=== PATIENT | male | born 1990 | race Caucasian/White ===

== ENCOUNTER 2020-05-30 15:52 | Outpatient (REF) | payer MEDICAID, SELFPAY | END 2020-05-30 15:53 | disposition home or self-care (01) | LOC: HO.LAB 15:52 | PROVIDERS: PCP Nurse Practitioner Family; Visit Provider Internal Medicine | DX: Z20.828 Contact with and (suspected) exposure to other viral communicable diseases (principal) | CPT/HCPCS: 87635 ==

== ENCOUNTER 2020-06-20 10:55 | Outpatient (REF) | payer MEDICAID, SELFPAY | END 2020-06-20 10:56 | disposition home or self-care (01) | LOC: HO.LAB 10:55 | PROVIDERS: Visit Provider Internal Medicine | DX: Z20.828 Contact with and (suspected) exposure to other viral communicable diseases (principal) | CPT/HCPCS: C9803; U0003 ==

== ENCOUNTER 2020-07-01 10:51 | Outpatient (REF) | payer MEDICAID, SELFPAY | END 2020-07-01 10:52 | disposition home or self-care (01) | LOC: HO.LAB 10:51 | PROVIDERS: Visit Provider Internal Medicine | DX: Z20.828 Contact with and (suspected) exposure to other viral communicable diseases (principal) | CPT/HCPCS: C9803; U0003 ==

== ENCOUNTER 2021-03-16 15:20 | Outpatient (REF) | payer MEDICAID, SELFPAY ==
--- NOTE | ~2021-03-16 | XR_ITS ---
EXAMINATION: XR LUMBOSACRAL SPINE CLINICAL INFORMATION: Abdominal pain. COMPARISON: CT abdomen and pelvis of 09/28/2018. TECHNIQUE: 3 views of the lumbosacral spine. FINDINGS: There are 5 [id number] lumbar vertebrae. The bony texture and alignment is satisfactory. Disc spaces are maintained. No acute fracture, spondylolisthesis, or spondylolysis appreciated. Pedicles intact. XR/XR lumbar spine 2-3V IMPRESSION: No significant abnormality of the lumbar spine identified.
== END 2021-03-16 15:21 | disposition home or self-care (01) ==
LOC: HO.XRAY 15:20
PROVIDERS: PCP Nurse Practitioner Family; Visit Provider Nurse Practitioner Family
DX: R10.9 Unspecified abdominal pain (principal)
CPT/HCPCS: 72100

== ENCOUNTER 2021-06-11 15:53 | Emergency (ER) | payer MEDICAID, SELFPAY ==
[2021-06-11 16:08] VITALS: BP 130/79; PULSE 82; RESP 18; TEMP 36.8; O2SAT 98; BMI 26.4
[2021-06-11 19:25] VITALS: BP 138/84; PULSE 78; RESP 18; TEMP 36.2; O2SAT 98
--- NOTE | 2021-06-11 19:43 | ED.BACK ---
HPI - Back Pain/Injury General Chief Complaint: Back Pain/Injury Stated Complaint: back pain and ?hives from pain meds Time Seen by Provider: 06/11/21 19:43 Source: patient Mode of arrival: ambulatory Limitations: no limitations History of Present Illness HPI Narrative: Patient with chronic back pain and x-ray done on 04/01 was negative , PCP started on tizanidine patient noticed is sleeping too much and medicine is not helping him had a small rash on the left side of the face which is getting better now. No history of trauma no urinary complaints no history of kidney stone pain is more localized to the right side. Patient able to ambulate with increased spasm Related Data Previous Rx's Medication Instructions Recorded oxycodone 5 mg tablet 5 mg PO Q6H PRN #20 tab 06/11/21 prednisone 20 mg tablet 40 mg PO DAILY #10 tab 06/11/21 Allergies Allergy/AdvReac Type Severity Reaction Status Date / Time dextromethorphan Allergy Mild RASH Unverified 04/28/20 17:09 [From Robitussin-DM] guaifenesin Allergy Mild RASH Unverified 04/28/20 17:09 [From Robitussin-DM] Review of Systems Review of Systems: Yes all other systems are reviewed and are negative [facility] Social History Social History Advance Directives: No Advance Directives Information Provided: No Physical Exam Vital Signs: Vital Signs: Last Vital Signs Temp 97.1 F 06/11/21 19:25 Pulse 78 06/11/21 19:25 Resp 18 06/11/21 19:25 BP 138/84 06/11/21 19:25 Pulse Ox 98 06/11/21 19:25 Body Mass Index 26.4 Const: General: healthy appearing and comfortable Orientation/consciousness: patient oriented x3 HENMT: Head: Yes normocephalic and Yes atraumatic Face and sinus: Yes normal facial exam Mouth: Normal oral and palatal mucosa present Eyes: General: appearance normal, both eyes and all related structures Neck: Neck: Yes normal visual inspection and Yes full ROM Resp: Effort & Inspection: normal respiratory effort Auscultation: clear to auscultation bilaterally Cardio: Palpation: normal PMI Rate: regular rate Rhythm: regular rhythm Heart sounds: S1 normal heart sound present and S2 normal heart sound present GI: Inspection: Yes normal to inspection Palpation (GI): Soft to palpation and nontender : General: Yes no CVA tenderness Back/Spine/Pelvis: Back: no CVA tenderness Thoracic/Lumbar Spine: straight leg raise negative bilaterally, thoraco-lumbar spasm, No thoracic spinal tenderness and No lumbar spinal tenderness Back/spine/pelvis image: 1. Soft tissue Tenderness, no spinal tenderness good range of movement neurovascular intact Neuro: General: patient oriented x3, gait normal, moves all extremities, Normal light touch and pain sensation and no focal motor deficits MDM - Back Pain/Injury Lab Data Labs: Lab Results 06/11/21 Range/Units 19:58 Urine Color YELLOW Urine Appearance CLEAR Urine pH 7.0 (5.0-8.0) Ur Specific [place] 1.015 (1.005-1.025) Urine Protein NEG (NEG-TRACE) MG/DL Urine Glucose (UA) NEG (NEG) MG/DL Urine Ketones NEG (NEG) MG/DL Urine Blood NEG (NEG) Urine Nitrite NEG (NEG) Ur Leukocyte Esterase NEG (NEG) Discharge Plan Discharge Clinical Impression: Strain of lumbar region Qualifiers: Encounter type: initial encounter Qualified Code(s): S39.012A - Strain of muscle, fascia and tendon of lower back, initial encounter Patient Disposition: Home, Self-Care Instructions: Back Pain (ED) Additional Instructions: Rest at home Take meds as prescribed and follow up with PCP Prescriptions: New prednisone 20 mg tablet 40 mg PO DAILY Qty: 10 RF: 0 oxycodone 5 mg tablet 5 mg PO Q6H PRN (Reason: Pain (Scale Score 7-10)) Qty: 20 RF: 0 Interventions: ED Discharge Assessment Last Done: 06/11/21 20:48 Discharge Date/Time: 06/11/21 20:48
[2021-06-11 20:04] LABS: Appearance Urine CLEAR; Color Urine YELLOW; Glucose Urine UA NEG (NEG); Leukocyte Esterase Urine NEG (NEG); Nitrite Urine NEG (NEG); Specific Gravity - Urine 1.015 (1.005-1.025); Urine Blood NEG (NEG); Urine Ketones NEG (NEG); Urine Protein NEG (NEG-TRACE)
[2021-06-11] MEDS: oxyCODONE HCl Immed Release 5 MG TABLET 10 MG PO (20:05)
[2021-06-11] MEDS: predniSONE 20 MG TABLET 40 MG PO (20:05)
== END 2021-06-11 20:48 | disposition home or self-care (01) ==
PROVIDERS: Emergency Provider Internal Medicine
DX: S39.012A Strain of muscle, fascia and tendon of lower back, initial encounter (principal); X58.XXXA Exposure to other specified factors, initial encounter; Y93.9 Activity, unspecified; Y92.9 Unspecified place or not applicable; Y99.9 Unspecified external cause status
CPT/HCPCS: 81003; 99283; 99284

== ENCOUNTER 2023-05-06 19:20 | Emergency (ER) | payer MEDICAID, SELFPAY ==
[2023-05-06 19:27] VITALS: PULSE 95; RESP 24; TEMP 37.1; O2SAT 96; BMI 26.6
--- NOTE | 2023-05-06 19:29 | ED.GENADULT ---
HPI - General Adult General Chief complaint: Anxiety Stated complaint: anxiety attack Time Seen by Provider: 05/06/23 19:43 Source: other (Significant other) Mode of arrival: ambulatory Limitations: other (Hyperventilating having a panic attack) History of Present Illness HPI narrative: Patient comes to the emergency room for a panic attack. Patient is unable to give any history because he is hyperventilating and crying. Patient's significant other at bedside, states that yesterday the patient was seen at [facility], given p.o. medications and discharged. Today, seems that patient slept all day, when he woke up, he started having a panic attack. Related Data Previous Rx's Medication Instructions Recorded oxycodone 5 mg tablet 5 mg PO Q6H PRN Pain (Scale Score 06/11/21 7-10) #20 tabs prednisone 20 mg tablet 40 mg (2 x 20 mg) PO DAILY #10 tabs 06/11/21 Allergies Allergy/AdvReac Type Severity Reaction Status Date / Time dextromethorphan Allergy Mild RASH Verified 05/06/23 19:33 [From Robitussin-DM] guaifenesin Allergy Mild RASH Verified 05/06/23 19:33 [From Robitussin-DM] Review of Systems Review of Systems: Yes Unobtainable due to mental condition [facility] Past Medical History Medical History (Updated 05/06/23 @ 20:21 by Majo Morfin MD) Panic attack Social History Social History Advance Directives: No Advance Directives Information Provided: No Physical Exam ED Vital Signs: Vital Signs - 24 hr 05/06/23 19:27 Temperature 98.7 F Pulse Rate 95 Respiratory Rate 24 H Pulse Oximetry 96 Oxygen Delivery Method Room Air BMI result Body Mass Index 26.6 Const Other: Appearance: Alert. Crying, hyperventilating, can speak, having a panic attack Eyes: Pupils equal, round and reactive to light. ENT: Pharynx normal. Neck: Normal inspection. Neck supple. No lymph nodes noted. No crepitus CVS: Heart rate 90-100,, regular rhythm, Pulses normal. Normal S1 and S2 Respiratory: No respiratory distress. Breath sounds normal. No Wheezing. No rales Abdomen: Soft and nontender. No rigidity. No distention. Skin: Skin warm and dry. Normal skin color. Normal skin turgor. Extremities: No lower extremity edema. No Lacerations. No Rash Neuro: Oriented X 3. No motor deficit. No sensory deficit. Moving all extremities. No slurred speech. CN 2 through 12 grossly intact Psych: Very anxious, having a panic attack, hyperventilating and sobbing/ crying Course Course Course Narrative: RME performed by Latanya Moore PA-C. Patient is a 32 year old assigned male at presenting to the emergency department with an anxiety attack. Patient placed back in the waiting room pending room availability and results. Medications Administered Discontinued Medications Generic Name Dose Route Start Last Admin Trade Name Freq PRN Reason Stop Dose Admin Diphenhydramine HCl 50 mg 05/06/23 19:55 05/06/23 20:06 Diphenhydramine Hcl 50 Mg/Ml Vial IM 05/06/23 19:56 50 mg ONCE ONE Administration Lorazepam 2 mg 05/06/23 19:55 05/06/23 20:06 Lorazepam 2 Mg/Ml Vial IM 05/06/23 19:56 2 mg STAT STA Administration Medical Decision Making Medical Decision Making [facility] Narrative: -I offered to the patient p.o. versus IM medications, Ativan, lorazepam, patient signaling that he wants IM medication. Per patient's request, we will give him IM Benadryl and lorazepam. This is not a chemical restraint -Ant from the care team at bedside, teaching the patient maneuvers and respirations to help with the anxiety. Within a few seconds, patient was able to calm down and breathe normal and stop crying -patient states that he has an appointment tomorrow with his new therapist -per Care Team, no need for inpatient psych, patient can be discharged when patient feels better -patient calm, no longer crying or hyperventilating. Patient will follow-up with his therapist tomorrow Differential Diagnosis Differential Diagnoses: The differential diagnosis associated with the presentation includes (Anxiety, panic attack) Critical Care Time Critical Care Time Critical Care Time: Yes Total Critical Care Time: 30 Attestation: I have personally provided critical care time. Time includes review of lab data, radiology results, discussion with consultants, and monitoring for potential decompensation. Intervention performed as documented. Discharge Plan Discharge Clinical Impression: Panic attack Patient Disposition: Home, Self-Care Instructions: Panic Attack (ED) Additional Instructions: Please follow-up with your primary care physician tomorrow. If you have any worsening or new symptoms, please return to the emergency room or call 911 Prescriptions: No Action prednisone 20 mg tablet 40 mg PO DAILY Qty: 10 0RF oxycodone 5 mg tablet 5 mg PO Q6H PRN (Reason: Pain (Scale Score 7-10)) Qty: 20 0RF
--- NOTE | 2023-05-06 20:00 | PC.NURSE ---
Pt into the room from [facility] with severe anxiety attack. Dr. Morfin and Care team at the bedside, pt offered IM Ativan and Benadryl to help him relax, pt agreeable to medication, family member present at the bedside
[2023-05-06] MEDS: LORazepam 2 MG/ML VIAL IM (20:06)
[2023-05-06] MEDS: diphenhydrAMINE HCL 50 MG/ML VIAL IM (20:06)
--- NOTE | 2023-05-06 20:12 | MHC.CARE ---
CARE Team was asked to see the pt by the ED provider due to him having an active panic attack. T/W called for a Yakut speaking sign language interpreter so that the communication would be easier as the pt does not speak [place] fluently. T/W used breathing techniques with the pt and it worked to calm the pt down. Pt began to have another panic attack once t/w asked about his triggers and t/w had the pt complete the breathing technique again. Again, it seemed to help. Pt was still requesting for his IM medications to help with his anxiety. ED RN walked into the room at this point and administered the IM anti-anxiety meds. Pt stated that he has a med provider and a therapist with [facility]. His next therapist appointment is tomorrow. Pt stated that he saw his med provider one week ago and no new changes took place. T/W encouraged the pt to utilize the breathing technique that he was just taught any time he feels anxious.
[2023-05-06 21:53] VITALS: BP 117/83; PULSE 76; RESP 16; O2SAT 98
== END 2023-05-06 21:54 | disposition home or self-care (01) ==
PROVIDERS: Emergency Provider Emergency Medicine
DX: F41.0 Panic disorder [episodic paroxysmal anxiety] (principal)
CPT/HCPCS: 96372; 99283; 99284; J1200; J2060

== ENCOUNTER 2023-05-19 15:53 | Emergency (ER) | payer MEDICAID, SELFPAY ==
[2023-05-19 16:00] VITALS: BP 116/79; PULSE 72; RESP 22; TEMP 36.6; O2SAT 98; BMI 25.9
--- NOTE | 2023-05-19 16:04 | ED.GENADULT ---
HPI - General Adult General Chief complaint: Anxiety Stated complaint: Anxiety Time Seen by Provider: 05/19/23 23:22 Source: patient Mode of arrival: ambulatory Limitations: no limitations History of Present Illness HPI narrative: Patient with history of anxiety disorder takes Atarax complaining of increased anxiety for last few days unable to sleep no recent stress denies any depression or SI no hallucination/ delusion Related Data Previous Rx's Medication Instructions Recorded oxycodone 5 mg tablet 5 mg PO Q6H PRN Pain (Scale Score 06/11/21 7-10) #20 tabs prednisone 20 mg tablet 40 mg (2 x 20 mg) PO DAILY #10 tabs 06/11/21 alprazolam 0.5 mg tablet (Xanax) 0.5 mg PO BID PRN anxiety/sleep 05/20/23 #10 tabs Allergies Allergy/AdvReac Type Severity Reaction Status Date / Time dextromethorphan Allergy Mild RASH Verified 05/06/23 19:33 [From Robitussin-DM] guaifenesin Allergy Mild RASH Verified 05/06/23 19:33 [From Robitussin-DM] Review of Systems Review of Systems: Yes all other systems are reviewed and are negative [facility] Past Medical History Medical History Panic attack Social History Social History Advance Directives: No Advance Directives Information Provided: No Physical Exam ED Vital Signs: Vital Signs - 24 hr 05/19/23 16:00 05/19/23 23:13 Temperature 97.8 F 98.2 F Pulse Rate 72 58 Respiratory Rate 22 H 16 Blood Pressure 116/79 131/80 Pulse Oximetry 98 98 Oxygen Delivery Method Room Air Room Air BMI result Body Mass Index 25.9 Appearance: Alert. Oriented X3. No acute distress. Eyes: PERRLA, No Nystagmus ENT: Pharynx normal. Oral Mucosa moist Neck: Normal inspection. Neck supple. CVS: Normal heart rate and rhythm. Pulses normal. Respiratory: No respiratory distress. Equal air entry bilateral, no wheezing/rales/rhonchi Abdomen: Soft and nontender. Bowel sounds are present, Skin: Skin warm and dry. Normal skin color. Normal skin turgor. Extremities: No lower extremity edema. No calf tenderness psych: Anxious, denies any SI or HI Neuro: Oriented X 3. No motor deficit. No sensory deficit.No cerebellar signs , cranial nerves II-XII intact Course Course Course Narrative: RME: patient present for severe anixeyt which usally presents with ABDOMINAL PAIN AND BEING ANXIOUS. Patient is not suicidal/homicidal. labs, Care team consutl placed Medications Administered Discontinued Medications Generic Name Dose Route Start Last Admin Trade Name Freq PRN Reason Stop Dose Admin Lorazepam 1 mg 05/19/23 23:28 05/19/23 23:40 Lorazepam 1 Mg Tablet PO 05/19/23 23:29 1 mg ONCE ONE Administration Medical Decision Making Medical Decision Making [facility] Narrative: Patient's anxiety feel better after Ativan discharge patient home on Xanax Lab Data 05/19/23 17:11 05/19/23 17:11 Labs: Lab Results 05/19/23 05/19/23 Range/Units 17:11 23:27 WBC 8.8 (4.8-10.8) X10*3/uL RBC 4.98 (4.60-5.80) X10*6/uL Hgb 14.5 (14.0-18.0) g/dl Hct 41.4 L (42.0-52.0) % MCV 83.1 (80.0-98.0) fL MCH 29.1 (27.0-33.0) pg MCHC 35.0 (31.0-36.0) g/dl RDW 11.9 (11.0-16.0) % Plt Count 247 (160-400) X10*3/uL MPV 9.4 (9.4-12.4) fL Immature Gran % (Auto) 0.3 (0.0-0.4) % Neut % (Auto) 76.5 H (45-73) % Lymph % (Auto) 16.1 L (20-40) % [place] % (Auto) 6.5 (2-11) % Eos % (Auto) 0.3 (0-4) % Baso % (Auto) 0.3 (0-2) % Lymph # (Auto) 1.4 (1.2-4.9) X10*3/uL [place] # (Auto) 0.6 (0.1-1.2) X10*3/uL Eos # (Auto) 0.0 (0.0-0.4) X10*3/uL Baso # (Auto) 0.0 (0.0-0.2) X10*3/uL Abs Immat Gran (auto) 0.03 (0.00-0.03) X10*3/uL Absolute Neuts (auto) 6.7 (2.0-8.3) x10*3/uL Absolute Nucleated RBC 0.000 (0.0-0.012) X10*3/uL Nucleated RBC % (auto) 0.0 (0.0-0.2) /100WBC Sodium 139 (135-145) mmol/L Potassium 3.8 (3.3-5.1) mmol/L Chloride 107 (96-108) mmol/L Carbon Dioxide 21 L (22-29) mmol/L Anion Gap 15 (12-20) BUN 10 (9-16) mg/dL Creatinine 0.85 (0.5-1.4) mg/dL Estim Creat Clear Calc 115.5 Estimated GFR > 60 Random Glucose 107 (60-115) mg/dL Calcium 10.1 (8.4-10.2) mg/dL Total Bilirubin 0.5 (0.0-1.0) mg/dL AST 17 (5-37) U/L ALT 15 (0-40) U/L Alkaline Phosphatase 74 (39-117) U/L Total Protein 7.8 (6.5-8.0) g/dL Albumin 4.7 (3.5-5.0) g/dL Lipase 21 (8-78) U/L Urine Color Yellow Urine Appearance Clear Urine pH 5.5 (5.0-9.0) Ur Specific [place] 1.025 (1.005-1.025) Urine Protein Negative (Neg-Trace) mg/dL Urine Glucose (UA) Negative (Negative) mg/dL Urine Ketones 15 (Negative) mg/dL Urine Blood Negative (Negative) Urine Nitrite Negative (Negative) Ur Leukocyte Esterase Negative (Negative) Urine Opiates Screen Not Detected (Not Detect) Urine Fentanyl Screen Not Detected (Not Detect) Ur Barbiturates Screen Not Detected (Not Detect) Ur Phencyclidine Scrn Not Detected (Not Detect) Ur Amphetamines Screen Not Detected (Not Detect) U Benzodiazepines Scrn Not Detected (Not Detect) Urine Cocaine Screen Not Detected (Not Detect) U Marijuana (THC) Screen Not Detected (Not Detect) Ethyl Alcohol < 10 mg/dL Discharge Plan Discharge Clinical Impression: Acute anxiety Patient Disposition: Home, Self-Care Instructions: Generalized Anxiety Disorder (ED) Additional Instructions: Continue taking medication as prescribed by her PCP Take alprazolam 0.5 mg at twice daily to sleep and relax as needed for anxiety Follow with PCP Prescriptions: New alprazolam [Xanax] 0.5 mg tablet 0.5 mg PO BID PRN (Reason: anxiety/sleep) Qty: 10 0RF No Action prednisone 20 mg tablet 40 mg PO DAILY Qty: 10 0RF oxycodone 5 mg tablet 5 mg PO Q6H PRN (Reason: Pain (Scale Score 7-10)) Qty: 20 0RF Interventions: ED Discharge Assessment Last Done: 05/20/23 00:50 Discharge Date/Time: 05/20/23 00:53
[2023-05-19 23:13] VITALS: BP 131/80; PULSE 58; RESP 16; TEMP 36.8; O2SAT 98
== END 2023-05-20 00:53 | disposition home or self-care (01) ==
PROVIDERS: Emergency Provider Internal Medicine
DX: F41.1 Generalized anxiety disorder (principal); F43.0 Acute stress reaction; F43.9 Reaction to severe stress, unspecified; Z79.899 Other long term (current) drug therapy
CPT/HCPCS: 36415; 80053; 80307; 81003; 83690; 85025; 99284

== ENCOUNTER 2023-07-22 11:32 | Outpatient (REF) | payer MEDICAID, SELFPAY ==
[2023-07-22 14:11] LABS: MANUAL DIFF FLAG NO
[2023-07-22 14:18] LABS: Basophils Percent Auto 0.6 % (0-2); Eosinophils Percent Auto 0.2 % (0-4); Hematocrit 43.3 % (42.0-52.0); Hemoglobin 14.6 g/dl (14.0-18.0); Imm Gran Abs Auto 0.01 X10*3/uL (0.00-0.03); Imm Gran Pct Auto 0.2 % (0.0-0.4); Lymphocytes Absolute Auto 1.2 X10*3/uL (1.2-4.9); Lymphocytes Percent Auto 23.4 % (20-40); Mean Corpuscular HGB Conc 33.7 g/dl (31.0-36.0); Mean Corpuscular Hemoglobin 28.7 pg (27.0-33.0); Mean Corpuscular Volume 85.2 fL (80.0-98.0); Mean Platelet Volume 9.9 fL (9.4-12.4); Monocytes Absolute Auto 0.4 X10*3/uL (0.1-1.2); Monocytes Percent Auto 8.2 % (2-11); Neutrophils Absolute Auto 3.5 x10*3/uL (2.0-8.3); Neutrophils Percent Auto 67.4 % (45-73); Platelet Count 233 X10*3/uL (160-400); Red Blood Count 5.08 X10*6/uL (4.60-5.80); White Blood Count 5.1 X10*3/uL (4.8-10.8)
[2023-07-22 14:28] LABS: Estimated Average Glucose 88 mg/dL; Hemoglobin A1c % 4.7 % (<6.0)
[2023-07-22 14:49] LABS: Alanine Aminotransferase 18 U/L (0-40); Albumin Level 4.6 g/dL (3.5-5.0); Alkaline Phosphatase 66 U/L (39-117); Anion Gap 15 (12-20); Aspartate Amino Transferase 17 U/L (5-37); Bilirubin Total 0.4 mg/dL (0.0-1.0); Blood Urea Nitrogen 13 mg/dL (9-16); Calcium 9.5 mg/dL (8.4-10.2); Carbon Dioxide 26 mmol/L (22-29); Chloride 105 mmol/L (96-108); Cholesterol 250 mg/dL (<200); Estimated Glomerular Filt Rate > 60; Glucose Random 92 mg/dL (60-115); HDL Cholesterol 33 mg/dL (>40); LDL Cholesterol Calculated 198 mg/dL (<100); Potassium 4.1 mmol/L (3.3-5.1); Sodium 142 mmol/L (135-145); Total Protein 7.6 g/dL (6.5-8.0); Triglycerides 96 mg/dL (<150)
[2023-07-22 15:05] LABS: TSH reflex Free T4 1.39 uIU/mL (0.32-4.0)
[2023-07-22 16:57] LABS: CT PCR NOT DETECTED (Not Detect.); NG PCR NOT DETECTED (Not Detect.)
[2023-07-23 08:05] LABS: HIV AB/AG Nonreactive (Nonreactive); HIV Num 1 0.06 S/CO (0.00-0.99)
[2023-07-23 18:35] LABS: RPR Rapid Plasma Reagin NON-REACTIVE (NON-REACTIVE)
[2023-07-24 18:28] LABS: HCV Log PCR <1.18 NOT DETECTED Log IU/mL (NOT DETECTED); HepC Viral Load <15 NOT DETECTED IU/mL (NOT DETECTED)
== END 2023-07-22 11:33 | disposition home or self-care (01) ==
LOC: HO.CHCLDS 11:32
PROVIDERS: Visit Provider Registered Nurse
DX: Z00.00 Encounter for general adult medical examination without abnormal findings (principal); F41.9 Anxiety disorder, unspecified
CPT/HCPCS: 0353U; 36415; 80053; 80061; 83036; 84443; 85025; 86592; 87389; 87522

== ENCOUNTER 2024-01-08 10:42 | Outpatient (REF) | payer MEDICAID, SELFPAY ==
[2024-01-08 11:27] LABS: MANUAL DIFF FLAG NO
[2024-01-08 11:51] LABS: Basophils Percent Auto 0.6 % (0-2); Eosinophils Percent Auto 0.6 % (0-4); Hematocrit 43.8 % (42.0-52.0); Hemoglobin 14.8 g/dl (14.0-18.0); Imm Gran Abs Auto 0.01 X10*3/uL (0.00-0.03); Imm Gran Pct Auto 0.2 % (0.0-0.4); Lymphocytes Absolute Auto 1.2 X10*3/uL (1.2-4.9); Lymphocytes Percent Auto 25.5 % (20-40); Mean Corpuscular HGB Conc 33.8 g/dl (31.0-36.0); Mean Corpuscular Hemoglobin 29.1 pg (27.0-33.0); Mean Corpuscular Volume 86.1 fL (80.0-98.0); Mean Platelet Volume 10.1 fL (9.4-12.4); Monocytes Absolute Auto 0.4 X10*3/uL (0.1-1.2); Monocytes Percent Auto 8.6 % (2-11); Neutrophils Absolute Auto 3.1 x10*3/uL (2.0-8.3); Neutrophils Percent Auto 64.5 % (45-73); Platelet Count 215 X10*3/uL (160-400); Red Blood Count 5.09 X10*6/uL (4.60-5.80); Red Cell Distribution Width 11.7 % (11.0-16.0); White Blood Count 4.9 X10*3/uL (4.8-10.8)
[2024-01-08 12:17] LABS: Anion Gap 10 (12-20); Blood Urea Nitrogen 13 mg/dL (9-16); Calcium 10.1 mg/dL (8.4-10.2); Carbon Dioxide 28 mmol/L (22-29); Chloride 106 mmol/L (96-108); Estimated Glomerular Filt Rate > 60; Glucose Random 95 mg/dL (60-115); Potassium 4.4 mmol/L (3.3-5.1); Sodium 140 mmol/L (135-145)
[2024-01-08 12:26] LABS: TSH reflex Free T4 2.81 uIU/mL (0.32-4.0); Vitamin D 25-OH Total 37.4 ng/mL (>30)
[2024-01-10 17:53] LABS: Lyme Abs Screen <0.90 index
== END 2024-01-08 10:43 | disposition home or self-care (01) ==
LOC: HO.HHCL 10:42
PROVIDERS: Visit Provider Emergency Medicine
DX: R53.83 Other fatigue (principal); R51.9 Headache, unspecified
CPT/HCPCS: 36415; 80048; 82306; 82550; 84443; 85025; 86617; 86618

== ENCOUNTER 2024-02-07 12:53 | Outpatient (REF) | payer MEDICAID, SELFPAY ==
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
== END 2024-02-07 12:54 | disposition home or self-care (01) ==
LOC: HO.XRAY 12:53
PROVIDERS: Visit Provider Registered Nurse
DX: M54.2 Cervicalgia (principal); M54.50 Low back pain, unspecified; M54.6 Pain in thoracic spine; V89.2XXA Person injured in unspecified motor-vehicle accident, traffic, initial encounter
CPT/HCPCS: 72040; 72070; 72100

== ENCOUNTER 2024-08-14 13:02 | Outpatient (REF) | payer MEDICAID, SELFPAY ==
--- OUTSIDE RECORDS SUMMARY | 2024-08-14 14:36 | XMS_ITS | Continuity of Care Document ---
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 Eating drinking and swallowing are normal. Examination shows mild turbinate hypertrophy with slight septal deviation to the left side. Transnasal fiberoptic laryngoscopy was normal. I suspect his symptoms are due to allergic rhinitis, postnasal drip and the side effects of his medications including dicyclomine and hydroxyzine. I have suggested fluticasone nasal spray and drinking more water while avoiding throat clearing. He will discuss his medications with his PCP nakita Not available 06/01/2024 11:36:15 Plan of Treatment Reminders Order Date Submit Date Provider Last Modified By Organization Details Last Modified Time Details Appointments None recorded. Lab None recorded. Referral None recorded. Procedures None recorded. Surgeries None recorded. Imaging None recorded. Medication Orders fluticasone propionate 50 mcg/actuati on nasal spray,suspe nsion 2023 [facility]/Ph[facility]acy #[id number], [phone] [place], [address], 11:37:39 Patient TargetsNo targets recorded. Patient InstructionsNo instructions recorded. Reason for Referral None Reported. Problems Name Problem SNOMED Code Status Onset Date Resolution Date Notes Provider Name and Address Organization Details Recorded Time Chronic rhinitis 72097471 Active ANNIE RODRIGUEZ MD [address] [facility], [address], [place], [address], [facility] 4 11:36:57 Feeling of lump in throat 189381923 Active ANNIE RODRIGUEZ MD [address] [facility] [address], [place], [address], [facility] 4 11:37:07 Xerostomia 87202687 Active ANNIE RODRIGUEZ MD [address] [facility] 100, [place], [address], [facility] 4 11:37:36 Problem Notes None recorded. Procedures Surgical History Date Name Laterality Status Provider Name and Address Organization Details Recorded Time 06/01/20 24 Fiberoptic Laryngoscopy (Comprehensive) completed ANNIE ORTIZ MD [address] [facility] [address], [place], [address], [facility] 06/01/2024 11:36:52 Imaging Results None recorded. Procedure Notes None recorded. Medical Equipment None Reported. Allergies No known drug allergies Medications Name Sig Start Date Stop Date Status Note LastModified by Organization Details LastModified Time loperamide 2 mg capsule TAKE 1 CAPSULE BY MOUTH EVERY 6-8 HOURS FOR DIARRHEA 06/01 completed Not Available Not Available Not Available meloxicam 15 mg tablet TOME AYDEE TABLETA (15 MG) POR V A ORAL A DIARIO CUANDO SEA NECESARIO PARA EL DOLOR 06/01 completed Not Available Not Available Not Available sucralfate 1 gram tablet TAKE 1 TABLET BY MOUTH THREE TIMES A DAY BEFORE MEALS AND BEDTIME FOR 7 DAYS 06/01 completed Not Available Not Available Not Available sulfamethox azole 800 mg-trimetho prim 160 mg tablet TAKE 1 TABLET BY MOUTH TWICE A DAY FOR 5 DAYS 06/01 completed Not Available Not Available Not Available acetaminoph en 500 mg tablet TAKE 2 TABLETS BY MOUTH 3 TIMES A DAY X 10 DAYS CUANDO SEA NECESARIO FOR FEVER active Not Available Not Available No t Available pantoprazol e 20 mg tablet,bria yed release TAKE 1 TABLET BY MOUTH EVERY DAY 06/01 completed Not Available Not Available Not Available famotidine 20 mg tablet 1 TABLET BY MOUTH DAILY AT BEDTIME,I NSTR:TAKE AT A DIFFERENT TIME THAN PANTOPRAZ OLE 06/01 completed Not Available Not Available Not Available dicyclomine 20 mg tablet TAKE 1 TABLET BY MOUTH FOUR TIMES A DAY 06/01 completed Not Available Not Available Not Available pantoprazol e 40 mg tablet,bria yed release TAKE 1 TABLET BY MOUTH EVERY DAY IN THE MORNING active Not Available Not Available No t Available lidocaine 5 % topical patch APPLY 1 PATCH IN THE MORNING REMOVE AND DISARD PATCH WITHIN 12 HOURS OR DIRECTED 06/01 completed Not Available Not Available Not Available hydroxyzine HCl 25 mg tablet TAKE 1 - 2 TABLETS BY MOUTH EVERY EVENING NEEDED 06/01 completed Not Available Not Available Not Available pravastatin 20 mg tablet TAKE 1 TABLET BY MOUTH EVERY EVENING AT BEDTIME 06/01 completed Not Available Not Available Not Available ondansetron 4 mg disintegrat ing tablet TOME 1 TABLETA POR V A ORAL CADA 8 HORAS CUANDO SEA NECESARIO PARA LAS N USEAS Y V MITOS 06/01 completed Not Available Not Available Not Available fluticasone propionate 50 mcg/actuati on nasal spray,suspe nsion INSTILL 2 SPRAYS BY INTRANASA L ROUTE TODOS LOS D active Not Available Not Available No t Available clotrimazol e 1 % topical cream APPLY 1 FILM (TOPICAL) 2 TIMES PER DAY FOR 14 DAYS APPLY NEEDED FOR RASH 06/01 completed Not Available Not Available Not Available dicyclomine 10 mg capsule TOME 1 C PSULA POR V A ORAL CUATRO VECES AL D A active Not Available Not Available No t Available loratadine 10 mg tablet TAKE 1 TABLET BY MOUTH EVERY DAY 06/01 completed Not Available Not Available Not Available Ventolin HFA 90 mcg/actuati on aerosol inhaler INHALE 2 PUFFS EVERY 4 (FOUR) HOURS IF NEEDED FOR WHEEZING OR SHORTNESS OF BREATH. 06/01 completed Not Available Not Available Not Available hydroxyzine pamoate 25 mg capsule TAKE 1 CAPSULE BY MOUTH TWICE A DAY NEEDED PARA ANSIEDAD/ PARA DORMIR active Not Available Not Available No t Available azithromyci n 500 mg tablet TAKE 1 TABLET BY MOUTH EVERY DAY 06/01 completed Not Available Not Available Not Available cyclobenzap rine 5 mg tablet PLEASE SEE ATTACHED FOR DETAILED DIRECTION S 06/01 completed Not Available Not Available Not Available rosuvastati n 20 mg tablet TAKE 1 TABLET (20 MG) BY MOUTH AT BEDTIME. (FOR CHOLESTER OL) 06/01 completed Not Available Not Available Not Available melatonin 1 mg tablet TAKE 1 TABLET BY MOUTH EVERY NIGHT AT BEDTIME NEEDED active Not Available Not Available No t Available mirtazapine 7.5 mg tablet TOME AYDEE TABLETA POR V A ORAL CADA NOCHE AL ACOSTARSE 06/01 completed Not Available Not Available Not Available GaviLyte-G 236 gram-22.74 gram-6.74 gram-5.86 gram oral solution TAKE 8 OUNCE BY MOUTH DIRECTED FOLLOW PREP INSTRUCTI ONS GIVEN BY YOUR DOCTOR'S OFFICE 06/01 completed Not Available Not Available Not Available blood pressure test kit-large cuff USE TO check FOR BLOOD PRESSURE DIRECTED 06/01 completed Not Available Not Available Not Available Daily-Connor (with folic acid) 400 mcg tablet TAKE 1 TABLET BY MOUTH EVERY DAY IN THE MORNING 06/01 completed Not Available Not Available Not Available Vitals Date Recorded Body height Body mass index (BMI) Body weight Provider Name and Address Organization Details Last Updated DateTime 06/01/2024 177.8 cm 24.4 kg/m2 81996.7 g Salome Espinal [facility] 06/01/2024 11:22:32 Social History None recorded. Functional Status None recorded. Mental Status None recorded. Family History Nothing Reported. Medical History Condition Response Hyperlipidemia Y Anxiety Y Depression Y Past Encounters Encounter ID Performer Location Encounter Start Date Encounter Closed Date Diagnosis/Indication Diagnosis SNOMED-CT Code Diagnosis ICD10 Code [id number] ANNIE HORNE MD [facility] [address] [place] [address] 06/01/2024 11:06:12 06/01/2024 11:39:21 Chronic rhinitis 49510689 J31.0 Feeling of lump in throat 255687116 R09.89 Xerostomia 15164046 R68. 2 Health Concerns Section Related Observation LastModified by Organization Detai ls LastModified Time None Recorded Concern Status LastModified by Organization Details LastModified Time None Recorded Payers Encounter Date Sequence Insurance Name Policy Number Policy Meredith Covered Member ID Meredith Member ID Guarantor Name 06/01/2024 1 [place] [facility] Naveed Vang [id number] Naveed Vang Notes Date Note Type Note Provider Name and Address Organization Details Recorded Time 06/01/2024 text/html Patient with sensation of nasal congestion and dry throat with frequent throat clearing. He takes hydroxyzine and dicyclomine. He has depression. He is concerned about the sensation of dry mouth. ANNIE ORTIZ MD [address] [place] [address], [place], [address], [place] - [facility] 06/01/2024 11:38:17
--- OUTSIDE RECORDS SUMMARY | 2024-08-14 14:36 | XMS_ITS | Data Portability ---
Author Organization [place] - [facility], Allergy Address [address] [address] Care Team Providers Care Horse Rider Name Role Phone DIANA DOE Primary Care Provider [phone] Assessment Encounter Date Assessment Date Assessment LastModified [...] mcg/actuati on nasal spray,suspe nsion 2023 [facility]/Pharmacy #[id number], [phone] [facility], [place], [address], 11:37:39 Patient TargetsNo targets recorded. Patient InstructionsNo instructions recorded. Reason for Referral None Reported. Problems Name Problem SNOMED Code Status Onset Date Resolution Date Notes Provider Name and Address Organization Details Recorded Time Chronic rhinitis 39523972 Active ANNIE RODRIGUEZ MD 100 [facility], [address], [place], [address], [facility] 11:36:57 Feeling of lump in throat 660781935 Active 024 ANNIE RODRIGUEZ MD 100 [facility] 100, [place], [address], [facility] 4 11:37:07 Xerostomia 11830390 Active 024 ANNIE RODRIGUEZ MD 100 [facility] 100, [place], [address], [facility] 4 11:37:36 Problem Notes None recorded. Procedures Surgical History Date Name Laterality Status Provider Name and Address Organization Details Recorded Time 06/01/20 24 Fiberoptic Laryngoscopy (Comprehensive) completed ANNIE ORTIZ MD [address] [address], [place], [address], [facility] 06/01/2024 11:36:52 Imaging Results None recorded. [...] Updated DateTime 06/01/2024 177.8 cm 24.4 kg/m2 18170.7 g Salome Espinal [facility] 06/01/2024 11:22:32 Social History None recorded. Functional Status None recorded. Mental Status None recorded. Family History Nothing Reported. Medical History Condition Response Depression Y Anxiety Y Hyperlipidemia Y Past Encounters Encounter ID Performer Location Encounter Start Date Encounter Closed Date Diagnosis/Indication Diagnosis SNOMED-CT Code Diagnosis ICD10 Code [id number] ANNIE HORNE MD [facility] [address] [place] [address] 06/01/2024 11:06:12 06/01/2024 11:39:21 Chronic rhinitis 94876757 J31.0 Feeling of lump in throat 805956252 R09.89 Xerostomia 21970335 R68. 2 Health Concerns Section Related Observation LastModified by Organization Detai ls LastModified Time None Recorded Concern Status LastModified by Organization Details LastModified Time None Recorded Advance Directives Directive None Recorded Payers Encounter Date Sequence Insurance Name Policy Number Policy Meredith Covered Member ID Meredith Member ID Guarantor Name 06/01/2024 1 [place] [facility] Naveed Vang [id number] Naveed Vang Notes Date Note Type Note Provider Name and Address Organization Details Recorded Time 06/01/2024 text/html Patient with sensation of nasal congestion and dry throat with frequent throat clearing. He takes hydroxyzine and dicyclomine. He has depression. He is concerned about the sensation of dry mouth. ANNIE ORTIZ MD [address] [place] [address], [place], [address], [place] - [facility] 06/01/2024 11:38:17
[2024-08-14 14:45] LABS: Alanine Aminotransferase 25 U/L (0-40); Albumin Level 4.8 g/dL (3.5-5.0); Alkaline Phosphatase 66 U/L (39-117); Aspartate Amino Transferase 29 U/L (5-37); Bilirubin Direct 0.1 mg/dL (0.0-0.5); Bilirubin Total 0.4 mg/dL (0.0-1.0); Cholesterol 233 mg/dL (<200); HDL Cholesterol 38 mg/dL (>40); LDL Cholesterol Calculated 174 mg/dL (<100); Total Protein 7.7 g/dL (6.5-8.0); Triglycerides 109 mg/dL (<150)
[2024-08-14 16:08] LABS: CT PCR NOT DETECTED (Not Detect.); NG PCR NOT DETECTED (Not Detect.)
[2024-08-15 04:21] LABS: HBS Num1 1.42 mIU/mL (0-7.99); HBc Num1 0.09 S/CO (0.00-0.79); HBsAGNum1 0.43 S/CO (0.00-0.99); HIV AB/AG Nonreactive (Nonreactive); HIV Num 1 0.05 S/CO (0.00-0.99); Hepatitis B Core Antibody Nonreactive (Nonreactive); Hepatitis B Surface Antigen Negative (Negative); ~Hepatitis B Surface Antibody NONREACTIVE (Nonreactive)
[2024-08-15 12:29] LABS: HCV Log PCR <1.18 NOT DETECTED Log IU/mL (NOT DETECTED); HepC Viral Load <15 NOT DETECTED IU/mL (NOT DETECTED)
[2024-08-16 11:08] LABS: RPR Rapid Plasma Reagin NON-REACTIVE (NON-REACTIVE)
[2024-08-17 19:12] LABS: Trichomonas vaginalis RNA NOT DETECTED (NOT DETECTED)
== END 2024-08-14 13:03 | disposition home or self-care (01) ==
LOC: HO.CHCLDS 13:02
PROVIDERS: Visit Provider Registered Nurse
DX: Z11.3 Encounter for screening for infections with a predominantly sexual mode of transmission (principal); E78.2 Mixed hyperlipidemia
CPT/HCPCS: 36415; 80061; 80076; 86592; 86704; 86706; 87081; 87340; 87389; 87491; 87522; 87591; 87661